=== PATIENT | female | born 1975 | race American Indian/Alaskan Native ===

== ENCOUNTER 2017-09-07 10:02 | Inpatient (IN) | payer OTHER ==
[2017-09-01 11:19] VITALS: BMI 28.3
[~2017-09-07 10:02] MED LIST: EPINEPHrine 1 mg/ml (1:1000) Inj ONE
[2017-09-07] MEDS ORDERED: LIDOCAINE HYDROCHLORIDE INJ ONE (10:09)
--- NOTE | 2017-09-07 14:06 | NM ---
HISTORY: 41Y Year old female with LEFT breast cancer. TECHNIQUE: Multiple injections of 1.1 mCi of 99m Tc filtered sulfur colloid (total volume of 8 ml) were administered into the left breast tissue in the periareolar region. Anterior and oblique projection images of the chest were subsequently obtained. FINDINGS: Migration of activity demonstrated in the left axilla. IMPRESSION: Migration of activity to the left axilla.
[2017-09-07] MEDS ORDERED: Propofol 10 mg/ml Inj (20 ML) ONE (14:19)
[2017-09-07] MEDS ORDERED: Midazolam 2 MG/2 ML VIAL ONE (14:19)
[2017-09-07] MEDS ORDERED: Succinylcholine Chloride 20 mg/ml Syr (5 ml) IV ONE (14:22)
[2017-09-07] MEDS ORDERED: ceFAZolin 1 gm in NS 2 GM/200 ML BAG IVPB ONE (14:46)
[2017-09-07] MEDS ORDERED: Morphine 4 MG/ML VIAL ONE (15:35)
[2017-09-07] MEDS ORDERED: Labetalol 25mg/5ml Syringe ONE (16:35)
[2017-09-07] MEDS ORDERED: HYDROmorphone 0.5 mg/0.5 ml ISec IVP PRN (16:48)
[2017-09-07] MEDS: Dextrose 5%/0.45% NS 1,000 ML IV SCH (18:00)
[2017-09-07] MEDS: Oxycodone/Acetaminophen 5/325 mg Tab PO PRN (20:45)
[2017-09-07] MEDS: ceFAZolin 1 GM in Sodium Chloride 0.9% 100 ML IVPB SCH (22:12)
--- NOTE | 2017-09-07 23:15 | CP.PCM.HP ---
Past Patient History - Past Medical History & Family History Past Medical History?: Yes - Past Social History Smoking Status: Never Smoked - CARDIAC Hx Cardiac Disorders: Yes Hx Hypertension: Yes - PULMONARY Hx Respiratory Disorders: No - NEUROLOGICAL Hx Neurological Disorder: No - HEENT Hx HEENT Problems: No - RENAL Hx Chronic Kidney Disease: No - ENDOCRINE/METABOLIC Hx Endocrine Disorders: No - HEMATOLOGICAL/ONCOLOGICAL Hx Blood Disorders: No - INTEGUMENTARY Hx Dermatological Problems: Yes (left nipple drainage) - MUSCULOSKELETAL/RHEUMATOLOGICAL Hx Musculoskeletal Disorders: No Hx Falls: No - GASTROINTESTINAL Hx Gastrointestinal Disorders: Yes Hx Gall Bladder Disease: Yes - GENITOURINARY/GYNECOLOGICAL Hx Genitourinary Disorders: No - PSYCHIATRIC Hx Psychophysiologic Disorder: No Hx Substance Use: No - SURGICAL HISTORY Hx Surgeries: Yes Hx Breast Biopsy: Yes (Right breast) Hx Cholecystectomy: Yes - ANESTHESIA Hx Anesthesia: Yes Hx Anesthesia Reactions: No Hx Malignant Hyperthermia: No Has any member of the family had a problem w/ anesthesia?: No Meds Allergies/Adverse Reactions: Allergies Allergy/AdvReac Type Severity Reaction Status Date / Time No Known Allergies Allergy Verified 10/25/12 09:50 Results - Vital Signs Recent Vital Signs: Last Vital Signs Temp 99 F 09/07/17 18:05 Pulse 82 09/07/17 18:05 Resp 17 09/07/17 18:05 BP 127/82 09/07/17 18:05 Pulse Ox 100 09/07/17 18:05
[2017-09-08 00:43] VITALS: RESP 20
--- NOTE | 2017-09-08 04:06 | OP ---
PROCEDURE DATE: 09/07/2017. PREOPERATIVE DIAGNOSIS: Left breast cancer. POSTOPERATIVE DIAGNOSIS: Left breast cancer. PROCEDURES PERFORMED: 1. Left simple mastectomy. 2. Left axillary deep sentinel node biopsy. 3. Advancement flap closure of 60 cm2. SURGEON: Dr. Ric James. OFFICE MACHINE MECHANIC: Dr. Vila. ANESTHESIA: General endotracheal. ESTIMATED BLOOD LOSS: 100 mL. POSTOPERATIVE CONDITION: Stable. 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 She is now scheduled for a simple mastectomy along with a sentinel lymph node biopsy. GROSS FINDINGS: There was an area of fibrotic tissue around the previous biopsy sites, during initial dissection of the inferior flap near the needle biopsy site, we cut through this tissue in order to leave an adequate thickness of the flap; however, once the breast was removed we inspected the flap and found that the tissue could be removed safely without compromising the flap, so it was removed at that time secondarily and sent for specimen. There were two sentinel nodes removed each measured over spectrometer and was sent for specimen and frozen section revealed both to be negative. PROCEDURE: The patient taken to the operating room, general anesthesia was administered and the left breast, axilla and left arm were prepped and draped. Standard left mastectomy incision was made surrounding the left breast, they were carried down to the skin, subcutaneous tissue using the Bovie. The superior breast flap was raised first. This was done down to the effect of the fascial layer of the pectoralis muscle. All the bleeding was controlled with the Bovie. The inferior flap was raised in a similar fashion with the above findings. Once the superior and inferior flaps were raised, dissection was carried out just to the axillary fascia in the left breast was removed and sent for specimen. At this point, sentinel node biopsy was carried out using a spectrometer and twp nodes were identified and dissected free and removed and sent for frozen section. While waiting closure was performed of the breast flaps, fresh flaps were found to be under somewhat tension so a advancement flaps were raised superiorly, inferiorly by raising full-thickness flaps including muscle and fascia and making counter incisions to more easily close the wound. A total of 60 cm2 a flap was raised. The wound was irrigated with saline. Confirmation was obtained and both lymph nodes were negative and the remainder of the closure was performed by suturing the flaps with multiple layers of Monocryl, subcuticular Monocryl and skin clips. A Chris drain was left in the axilla on top of the chest wall and brought out through inferior stab wound. The skin was closed with clips. The drain was sutured in place with nylon. The patient tolerated procedure well, returned to recovery room in stable condition. Ric James MD
[2017-09-08] MEDS: Dextrose 5%/0.45% NS 1,000 ML IV SCH (04:54)
[2017-09-08] MEDS: ceFAZolin 1 GM in Sodium Chloride 0.9% 100 ML IVPB SCH ×3 (06:11→22:23)
[2017-09-08 07:32] LABS: BASO % 0.1 % (0.0-2.0); HEMOGLOBIN 9.2 g/dL (11.0-16.0); LYMPH # 0.9 K/uL (1.0-4.3); LYMPH % 9.8 % (20.0-40.0); MEAN CELL VOLUME 76.2 fL (81.0-99.0); MEAN CORPUSCULAR HEMOGLOBIN 24.7 pg (27.0-31.0); MEAN CORPUSCULAR HGB CONC 32.5 g/dL (33.0-37.0); MEAN PLATELET VOLUME 8.6 fL (7.2-11.7); MONO # 0.7 K/uL (0.0-0.8); MONO % 7.2 % (0.0-10.0); NEUT # 7.7 K/uL (1.8-7.0); NEUT % 82.9 % (50.0-75.0); PLATELET COUNT 310 K/uL (130-400); RBC 3.71 Mil/uL (3.80-5.20); RED CELL DISTRIBUTION WIDTH 18.8 % (11.5-14.5); WHITE BLOOD COUNT 9.2 K/uL (4.8-10.8)
[2017-09-08 07:54] LABS: BLOOD UREA NITROGEN 12 mg/dL (7-17); CALCIUM 9.1 mg/dl (8.6-10.4); GFR AFRICAN-AMERICAN > 60; GFR NON-AFRICAN AMERICAN > 60
[2017-09-08] MEDS: Oxycodone/Acetaminophen 5/325 mg Tab PO PRN ×3 (08:54→22:31)
[2017-09-08] MEDS: Metoprolol Succinate 50 mg XL Tab PO SCH (09:27)
[2017-09-08] MEDS: Enoxaparin 40 mg Syringe SC SCH (09:28)
[2017-09-08 11:44] LABS: ANISOCYTOSIS SLIGHT; HYPOCHROMIC SLIGHT; LYMPHOCYTE 4 % (20-40); MONOCYTE 6 % (0-10); NEUTROPHIL 90 % (50-75); PLATELET ESTIMATE NORMAL (NORMAL); TOTAL CELLS COUNTED 100
[2017-09-08 11:45] LABS: MICROCYTOSIS SLIGHT
--- NOTE | 2017-09-08 23:53 | CP.PCM.PN ---
Subjective - Date & Time of Evaluation Date of Evaluation: 09/08/17 Time of Evaluation: 19:00 - Subjective Subjective: pt is seen and evaluated today Objective - Vital Signs/Intake and Output Vital Signs (last 24 hours): Temp Pulse Resp BP Pulse Ox 98.5 F 81 20 125/77 98 09/08/17 15:00 09/08/17 15:00 09/08/17 15:00 09/08/17 15:00 09/08/17 15:00 Intake and Output: 09/08/17 09/09/17 18:59 06:59 Intake Total 1140 580 Output Total 60 Balance 1080 580 - Medications Medications: Current Medications Docusate Sodium (Colace) 100 mg PO BID [facility] Last Admin: 09/08/17 17:31 Dose: 100 mg Enoxaparin Sodium (Lovenox) 40 mg SC DAILY [facility] Last Admin: 09/08/17 09:28 Dose: 40 mg Cefazolin Sodium 1 gm/ Sodium (Chloride) 100 mls @ 100 mls/hr IVPB Q8H [facility] PRN Reason: Protocol Last Admin: 09/08/17 22:23 Dose: 100 mls/hr Ketorolac Tromethamine (Toradol) 30 mg IVP Q6 PRN PRN Reason: pain 8-10 Stop: 09/12/17 16:51 Metoprolol Succinate (Toprol Xl) 50 mg PO DAILY [facility] Last Admin: 09/08/17 09:27 Dose: 50 mg Ondansetron HCl (Zofran Inj) 4 mg IVP Q6 PRN PRN Reason: Nausea/Vomiting Oxycodone/Acetaminophen (Percocet 5/325 Mg Tab) 2 tab PO Q4H PRN PRN Reason: pain Stop: 09/10/17 16:51 Last Admin: 09/08/17 22:31 Dose: 2 tab Pantoprazole Sodium (Protonix Inj) 40 mg IVP DAILY [facility] Last Admin: 09/08/17 09:28 Dose: 40 mg - Labs Labs: 09/08/17 07:27 09/08/17 07:27
[2017-09-09] MEDS: ceFAZolin 1 GM in Sodium Chloride 0.9% 100 ML IVPB SCH (06:29)
[2017-09-09 08:03] VITALS: BP 126/79; PULSE 80; TEMP 98.1; O2SAT 96
[2017-09-09] MEDS: Enoxaparin 40 mg Syringe SC SCH (09:03)
[2017-09-09] MEDS: Metoprolol Succinate 50 mg XL Tab PO SCH (09:03)
[2017-09-09] MEDS: Oxycodone/Acetaminophen 5/325 mg Tab PO PRN (12:12)
--- NOTE | 2017-09-09 23:49 | CP.PCM.DIS ---
Provider - Provider Date of Admission: 09/07/17 16:51 Attending physician: Ric James MD Time Spent in preparation of Discharge (in minutes): 45 Hospital Course - Lab Results Lab Results: Most Recent Lab Values WBC 9.2 K/uL (4.8-10.8) D 09/08/17 07: RBC 3.71 Mil/uL (3.80-5.20) L 09/08/17 07: Hgb 9.2 g/dL (11.0-16.0) L D 09/08/17 07: Hct 28.3 % (34.0-47.0) L 09/08/17 07: MCV 76.2 fL (81.0-99.0) L 09/08/17 07: MCH 24.7 pg (27.0-31.0) L 09/08/17 07: MCHC 32.5 g/dL (33.0-37.0) L 09/08/17 07: RDW 18.8 % (11.5-14.5) H 09/08/17 07: Plt Count 310 K/uL (130-400) 09/08/17 07: MPV 8.6 fL (7.2-11.7) 09/08/17 07: Neut % (Auto) 82.9 % (50.0-75.0) H 09/08/17 07: Lymph % (Auto) 9.8 % (20.0-40.0) L 09/08/17 07: [place] % (Auto) 7.2 % (0.0-10.0) 09/08/17 07: Eos % (Auto) 0.0 % (0.0-4.0) 09/08/17 07: Baso % (Auto) 0.1 % (0.0-2.0) 09/08/17: Neut # (Auto) 7.7 K/uL (1.8-7.0) H 09/08/17 07: Lymph # (Auto) 0.9 K/uL (1.0-4.3) L 09/08/17 07: [place] # (Auto) 0.7 K/uL (0.0-0.8) 04/25/18 07:27 Eos # (Auto) 0.0 K/uL (0.0-0.7) 09/08/17 07:27 Baso # (Auto) 0.0 K/uL (0.0-0.2) 09/08/17 07:27 Neutrophils % (Manual) 90 % (50-75) H 09/08/17 07:27 Lymphocytes % (Manual) 4 % (20-40) L 09/08/17 07:27 Monocytes % (Manual) 6 % (0-10) 09/08/17 07:27 Platelet Estimate Normal (NORMAL) 09/08/17 07:27 Hypochromasia (manual) Slight 09/08/17 07:27 Anisocytosis (manual) Slight 09/08/17 07:27 Microcytosis (manual) Slight 09/08/17 07:27 Sodium 140 mmol/L (132-148) 09/08/17 07:27 Potassium 4.4 mmol/L (3.6-5.2) 09/08/17 07:27 Chloride 104 mmol/L (98-107) 09/08/17 07:27 Carbon Dioxide 23 mmol/L (22-30) 09/08/17 07:27 Anion Gap 18 (10-20) 09/08/17 07:27 BUN 12 mg/dL (7-17) 09/08/17 07:27 Creatinine 1.0 mg/dL (0.7-1.2) 09/08/17 07:27 Est GFR ( Amer) > 60 09/08/17 07:27 Est GFR (Non-Af Amer) > 60 09/08/17 07:27 Random Glucose 115 mg/dL (65-105) H 09/08/17 07:27 Calcium 9.1 mg/dl (8.6-10.4) 09/08/17 07:27 Discharge Plan - Follow Up Plan Condition: GOOD Disposition: HOME/ ROUTINE Instructions: Mastectomy, Mastectomy (DC), Tramadol Additional Instructions: Post-op instrucitons, Resume all pre-op medications and diet at home. Remove dressing tomorrow and shower. Wash incision of soap and water. Clean wound, Hold drain while in shower. Empty drain 2x/day and record drainage. Light activity. Tramadol for pin. Call Dr. James [phone]/ for appointment Wednesday (09/14/17) Referrals: Ric James MD [Staff Provider] -
== END 2017-09-09 13:29 | disposition home or self-care (01) | DRG 266 ==
LOC: C.SDS 10:02 → C.9S 16:51 → C.3T 16:51 → C.9E 16:51 → C.3T 09-08 01:41 → UNDODISIN 09-08 18:03
PROVIDERS: ADMIT Surgery; ATTEND Surgery
PROC: 07B60ZX Excision of Left Axillary Lymphatic, Open Approach, Diagnostic (ICD-10-PCS; 2017-09-07)
PROC: 0HBU0ZZ Excision of Left Breast, Open Approach (ICD-10-PCS; principal; 2017-09-07 14:00)
PROC: 0HX5XZZ Transfer Chest Skin, External Approach (ICD-10-PCS; 2017-09-07 14:00)
DX: C50.912 Malignant neoplasm of unspecified site of left female breast (principal)

== ENCOUNTER 2017-10-18 11:00 | Inpatient (IN) | payer MEDICAID ==
[2017-09-01 11:17] VITALS: BMI 28.3
[2017-10-18] MEDS ORDERED: Propofol 10 mg/ml Inj (20 ML) ONE (16:17)
[2017-10-18] MEDS ORDERED: Midazolam 2 MG/2 ML VIAL ONE (16:17)
[2017-10-18] MEDS ORDERED: ceFAZolin IV 2 gm in Dextrose 2 GM/50 ML BAG IVPB ONE (16:22)
[2017-10-18] MEDS ORDERED: Oxycodone/Acetaminophen 5/325 mg Tab PO PRN (17:28)
[2017-10-18] MEDS: HYDROmorphone 0.5 mg/0.5 ml ISec IVP PRN ×3 (17:40→18:30)
[2017-10-18] MEDS ORDERED: Dextrose 5%/0.45% NS 1,000 ML IV ONE (18:00)
[2017-10-18] MEDS: Dextrose 5%/0.45% NS 1,000 ML IV SCH (20:03)
[2017-10-18] MEDS: Oxycodone/Acetaminophen 5/325 mg Tab PO PRN (21:21)
[2017-10-19] MEDS: ceFAZolin 1 gm FROZEN Premix 1 GM/50 ML ML IVPB SCH ×5 (01:21→23:40)
[2017-10-19] MEDS: Dextrose 5%/0.45% NS 1,000 ML IV SCH ×3 (01:22→18:35)
[2017-10-19 06:42] LABS: BASO % 0.5 % (0.0-2.0); HEMOGLOBIN 9.1 g/dL (11.0-16.0); LYMPH # 0.9 K/uL (1.0-4.3); LYMPH % 10.6 % (20.0-40.0); MEAN CELL VOLUME 76.3 fL (81.0-99.0); MEAN CORPUSCULAR HEMOGLOBIN 24.4 pg (27.0-31.0); MEAN PLATELET VOLUME 8.5 fL (7.2-11.7); MONO # 0.3 K/uL (0.0-0.8); MONO % 3.3 % (0.0-10.0); NEUT # 6.8 K/uL (1.8-7.0); NEUT % 85.6 % (50.0-75.0); NRBC % 0.1 % (0.0-2.0); RBC 3.72 Mil/uL (3.80-5.20)
[2017-10-19 06:55] LABS: ALBUMIN 3.4 g/dL (3.5-5.0); ALT/SGPT 33 U/L (9-52); AST/SGOT 37 U/L (14-36); BLOOD UREA NITROGEN 10 mg/dL (7-17); CALCIUM 9.1 mg/dl (8.6-10.4); GFR AFRICAN-AMERICAN > 60; GFR NON-AFRICAN AMERICAN > 60
[2017-10-19] MEDS ORDERED: Pneumococcal 23-Valent Vaccine IM ONE (10:00)
[2017-10-19] MEDS: Metoprolol Succinate 50 mg XL Tab PO SCH (10:15)
--- NOTE | 2017-10-19 10:22 | CP.PCM.HP ---
Present on Admission - Present on Admission Any Indicators Present on Admission: No Past Patient History - Past Medical History & Family History Past Medical History?: Yes - Past Social History Smoking Status: Never Smoked - CARDIAC Hx Cardiac Disorders: Yes Hx Hypertension: Yes - PULMONARY Hx Respiratory Disorders: No - NEUROLOGICAL Hx Neurological Disorder: No - HEENT Hx HEENT Problems: No - RENAL Hx Chronic Kidney Disease: No - ENDOCRINE/METABOLIC Hx Endocrine Disorders: No - HEMATOLOGICAL/ONCOLOGICAL Hx Blood Disorders: No - INTEGUMENTARY Hx Dermatological Problems: Yes (Left nipple drainage) - MUSCULOSKELETAL/RHEUMATOLOGICAL Hx Musculoskeletal Disorders: No Hx Falls: No - GASTROINTESTINAL Hx Gastrointestinal Disorders: Yes Hx Gall Bladder Disease: Yes - GENITOURINARY/GYNECOLOGICAL Hx Genitourinary Disorders: No - PSYCHIATRIC Hx Psychophysiologic Disorder: No Hx Substance Use: No - SURGICAL HISTORY Hx Surgeries: Yes Hx Breast Biopsy: Yes (Right breast) Hx Cholecystectomy: Yes Hx Mastectomy: Yes (Left Simple Mastectomy) - ANESTHESIA Hx Anesthesia: Yes Hx Anesthesia Reactions: No Hx Malignant Hyperthermia: No Meds Allergies/Adverse Reactions: Allergies Allergy/AdvReac Type Severity Reaction Status Date / Time No Known Allergies Allergy Verified 10/25/12 09:50 Results - Vital Signs Recent Vital Signs: Last Vital Signs Temp 97.9 F 10/19/17 08:00 Pulse 70 10/19/17 08:00 Resp 20 10/19/17 08:00 BP 118/68 10/19/17 08:00 Pulse Ox 96 10/19/17 08:00 - Labs Result Diagrams: 10/19/17 06:29 10/19/17 06:29 Labs: Laboratory Results - last 24 hr 10/19/17 10/19/17 10/19/17 06:29 06:29 06:39 WBC 8.0 RBC 3.72 L Hgb 9.1 L Hct 28.4 L MCV 76.3 L MCH 24.4 L MCHC 32.0 L RDW 18.0 H Plt Count 279 MPV 8.5 Neut % (Auto) 85.6 H Lymph % (Auto) 10.6 L [place] % (Auto) 3.3 Eos % (Auto) 0.0 Baso % (Auto) 0.5 Neut # (Auto) 6.8 Lymph # (Auto) 0.9 L [place] # (Auto) 0.3 Eos # (Auto) 0.0 Baso # (Auto) 0.0 Sodium 136 Potassium 4.7 Chloride 103 Carbon Dioxide 24 Anion Gap 13 BUN 10 Creatinine 0.9 Est GFR ( Amer) > 60 Est GFR (Non-Af Amer) > 60 Random Glucose 210 H Calcium 9.1 Total Bilirubin 0.5 AST 37 H ALT 33 Alkaline Phosphatase 48 Total Protein 6.7 Albumin 3.4 L Globulin 3.3 Albumin/Globulin Ratio 1.0 Urine HCG, Qual Negative
[2017-10-19] MEDS: Enoxaparin 40 mg Syringe SC SCH (10:30)
[2017-10-19] MEDS ORDERED: HEPARIN-NS 5,000 UNITS/500 ML 5,000 UNIT/500 ML BAG IV ONE (13:33)
[2017-10-19] MEDS ORDERED: Bupivacaine HCl 0.5% PF (30 ml) Inj ONE (13:34)
[2017-10-19] MEDS ORDERED: Lidocaine Hydrochloride 20 ML INJ ONE (13:34)
[2017-10-19] MEDS ORDERED: Lactated Ringer's 1,000 ML IV ONE (13:50)
[2017-10-19] MEDS ORDERED: ceFAZolin 1 gm in NS 2 GM/200 ML BAG IVPB ONE (13:55)
[2017-10-19] MEDS ORDERED: Midazolam 2 MG/2 ML VIAL ONE (13:57)
[2017-10-19] MEDS ORDERED: Propofol 10 mg/ml Inj (20 ML) ONE ×2 (13:57→14:25)
[2017-10-19] MEDS ORDERED: HYDROmorphone 0.5 mg/0.5 ml ISec IVP PRN (15:20)
--- NOTE | 2017-10-19 15:32 | RAD ---
PROCEDURE: Intraoperative Fluoroscopy. HISTORY: POOR VENOUS ACCESS/BREAST CA FINDINGS: Fluoroscopic assistance was provided for right sided Port-A-Cath placement. Please refer to the operative report from ESTHER Dietz.
--- NOTE | 2017-10-19 15:37 | RAD ---
HISTORY: SP portacath COMPARISON: Chest radiographs 09/01/2017. FINDINGS: LUNGS: Diminished history volume however there is no acute infiltrate appreciated bilaterally. Right MediPort now identified in position terminating at the distal superior vena cava. Left chest drainage catheter present with thin janice noted at the left chest wall, status post left mastectomy. PLEURA: No significant pleural effusion identified, no pneumothorax apparent. CARDIOVASCULAR: Normal. OSSEOUS STRUCTURES: S-shaped thoracolumbar scoliotic deformity reiterated. VISUALIZED UPPER ABDOMEN: Surgical clips again evident right upper quadrant abdomen. OTHER FINDINGS: None. IMPRESSION: Diminished inspiratory volume. Interval post left mastectomy changes as well as MediPort deployment as discussed above.
[2017-10-19] MEDS: Lactated Ringer's 1,000 ML IV SCH (16:00)
[2017-10-19 17:02] VITALS: RESP 20
[2017-10-19] MEDS: Oxycodone/Acetaminophen 5/325 mg Tab PO PRN (19:46)
[2017-10-20] MEDS: Lactated Ringer's 1,000 ML IV SCH ×2 (01:30→11:18)
[2017-10-20] MEDS: Dextrose 5%/0.45% NS 1,000 ML IV SCH (06:03)
[2017-10-20 07:33] VITALS: BP 130/82; PULSE 78; TEMP 98.6; O2SAT 99
[2017-10-20] MEDS: ceFAZolin 1 gm FROZEN Premix 1 GM/50 ML ML IVPB SCH (09:27)
[2017-10-20] MEDS: Metoprolol Succinate 50 mg XL Tab PO SCH (09:28)
[2017-10-20] MEDS: Enoxaparin 40 mg Syringe SC SCH ×2 (09:28→09:32)
--- NOTE | 2017-10-20 09:29 | CP.PCM.PN ---
Subjective - Date & Time of Evaluation Date of Evaluation: 10/19/17 Time of Evaluation: 17:00 - Subjective Subjective: Pt is doing better, s/p mastectomy for breast cancer, she is afebrile, no shortness of breath, no fever, B.P is under control, pt is for laura cath Objective - Vital Signs/Intake and Output Vital Signs (last 24 hours): Temp Pulse Resp BP Pulse Ox 98.6 F 78 20 130/82 99 10/20/17 07:31 10/20/17 07:31 10/20/17 07:31 10/20/17 07:31 10/20/17 07:31 Intake and Output: 10/20/17 10/20/17 06:59 18:59 Intake Total 2039 Output Total Balance 2009 - Medications Medications: Current Medications Docusate Sodium (Colace) 100 mg PO BID [facility] Last Admin: 10/19/17 17:11 Dose: 100 mg Enoxaparin Sodium (Lovenox) 40 mg SC DAILY [facility] Last Admin: 10/19/17 10:30 Dose: Not Given Folic Acid (Folic Acid) 1 mg PO DAILY [facility] Last Admin: 10/19/17 17:11 Dose: 1 mg Dextrose/Sodium Chloride (Dextrose 5%/0.45% Ns 1000 Ml) 1,000 mls @ 80 mls/hr IV .[id number] [facility] Last Admin: 10/20/17 06:03 Dose: 80 mls/hr Cefazolin Sodium (Ancef) 1 gm in 50 mls @ 100 mls/hr IVPB Q8H [facility] PRN Reason: Protocol Last Admin: 10/19/17 23:40 Dose: 100 mls/hr Lactated Ringer's (Lactated Ringer's) 1,000 mls @ 100 mls/hr IV .Q10H [facility] Last Admin: 10/20/17 01:30 Dose: Not Given Ketorolac Tromethamine (Toradol) 30 mg IVP Q6 PRN PRN Reason: pain 8-10 Stop: 10/23/17 17:29 Metoprolol Succinate (Toprol Xl) 50 mg PO DAILY [facility] Last Admin: 10/19/17 10:15 Dose: 50 mg Ondansetron HCl (Zofran Inj) 4 mg IVP Q6 PRN PRN Reason: Nausea/Vomiting Oxycodone/Acetaminophen (Percocet 5/325 Mg Tab) 2 tab PO Q4H PRN PRN Reason: pain Stop: 10/21/17 17:29 Last Admin: 10/20/17 05:50 Dose: 2 tab Oxycodone/Acetaminophen (Percocet 5/325 Mg Tab) 1 tab PO Q4H PRN PRN Reason: Pain, Mild (1-3) Stop: 10/21/17 21:12 Last Admin: 10/19/17 19:46 Dose: 1 tab Pantoprazole Sodium (Protonix Inj) 40 mg IVP DAILY [facility] Last Admin: 10/19/17 10:15 Dose: 40 mg - Labs Labs: 10/19/17 06:29 10/19/17 06:29 - Constitutional Appears: No Acute Distress - Head Exam Head Exam: ATRAUMATIC, NORMAL INSPECTION, NORMOCEPHALIC - Eye Exam Eye Exam: EOMI, Normal appearance, PERRL Pupil Exam: NORMAL ACCOMODATION, PERRL - ENT Exam ENT Exam: Mucous Membranes Moist, Normal Exam - Respiratory Exam Respiratory Exam: Clear to Ausculation Bilateral, NORMAL BREATHING PATTERN - Cardiovascular Exam Cardiovascular Exam: REGULAR RHYTHM, +S1, +S2. absent: Murmur - GI/Abdominal Exam GI & Abdominal Exam: Soft, Normal Bowel Sounds. absent: Tenderness Assessment and Plan (1) S/P mastectomy Status: Acute (2) HTN (hypertension) Status: Acute
--- NOTE | 2017-10-21 08:33 | CP.PCM.DIS ---
Provider - Provider Date of Admission: 10/18/17 17:28 Attending physician: Ric James MD Time Spent in preparation of Discharge (in minutes): 45 Diagnosis - Discharge Diagnosis (1) S/P mastectomy Status: Acute (2) HTN (hypertension) Status: Acute Hospital Course - Lab Results Lab Results: Most Recent Lab Values WBC 8.0 K/uL (4.8-10.8) 10/19/17 06: RBC 3.72 Mil/uL (3.80-5.20) L 10/19/17 06:29 Hgb 9.1 g/dL (11.0-16.0) L 10/19/17 06: Hct 28.4 % (34.0-47.0) L 10/19/17 06: MCV 76.3 fL (81.0-99.0) L 10/19/17 06: MCH 24.4 pg (27.0-31.0) L 10/19/17 06: MCHC 32.0 g/dL (33.0-37.0) L 10/19/17 06: RDW 18.0 % (11.5-14.5) H 10/19/17 06: Plt Count 279 K/uL (130-400) 10/19/17 06: MPV 8.5 fL (7.2-11.7) 10/19/17 06: Neut % (Auto) 85.6 % (50.0-75.0) H 10/19/17 06: Lymph % (Auto) 10.6 % (20.0-40.0) L 10/19/17 06: [place] % (Auto) 3.3 % (0.0-10.0) 10/19/17 06: Eos % (Auto) 0.0 % (0.0-4.0) 10/19/17 06: Baso % (Auto) 0.5 % (0.0-2.0) 10/19/17 06: Neut # (Auto) 6.8 K/uL (1.8-7.0) 10/19/17 06: Lymph # (Auto) 0.9 K/uL (1.0-4.3) L 10/19/17 06:29 [place] # (Auto) 0.3 K/uL (0.0-0.8) 10/19/17 06:29 Eos # (Auto) 0.0 K/uL (0.0-0.7) 10/19/17 06:29 Baso # (Auto) 0.0 K/uL (0.0-0.2) 10/19/17 06:29 Sodium 136 mmol/L (132-148) 10/19/17 06:29 Potassium 4.7 mmol/L (3.6-5.2) 10/19/17 06:29 Chloride 103 mmol/L (98-107) 10/19/17 06:29 Carbon Dioxide 24 mmol/L (22-30) 10/19/17 06:29 Anion Gap 13 (10-20) 10/19/17 06:29 BUN 10 mg/dL (7-17) 10/19/17 06:29 Creatinine 0.9 mg/dL (0.7-1.2) 10/19/17 06:29 Est GFR ( Amer) > 60 10/19/17 06:29 Est GFR (Non-Af Amer) > 60 10/19/17 06:29 Random Glucose 210 mg/dL (65-105) H 10/19/17 06:29 Calcium 9.1 mg/dl (8.6-10.4) 10/19/17 06:29 Total Bilirubin 0.5 mg/dL (0.2-1.3) 10/19/17 06:29 AST 37 U/L (14-36) H 10/19/17 06:29 ALT 33 U/L (9-52) 10/19/17 06:29 Alkaline Phosphatase 48 U/L (38-126) 10/19/17 06:29 Total Protein 6.7 g/dL (6.3-8.3) 10/19/17 06:29 Albumin 3.4 g/dL (3.5-5.0) L 10/19/17 06:29 Globulin 3.3 gm/dL (2.2-3.9) 10/19/17 06:29 Albumin/Globulin Ratio 1.0 (1.0-2.1) 10/19/17 06:29 Urine HCG, Qual Negative (NEGATIVE) 10/19/17 06:39 Discharge Exam - Head Exam Head Exam: ATRAUMATIC, NORMAL INSPECTION, NORMOCEPHALIC Discharge Plan - Follow Up Plan Condition: GOOD Disposition: HOME/ ROUTINE Instructions: Donta-Waller Drain, Breast Cancer (DC), Mastectomy (DC), Oxycodone and Acetaminophen Referrals: Ric James MD [Staff Provider] -
--- NOTE | 2017-11-20 00:59 | OP ---
PROCEDURE DATE: 10/18/2017 PREOPERATIVE DIAGNOSIS: Residual carcinoma in situ of the left chest wall. POSTOPERATIVE DIAGNOSIS: Residual carcinoma in situ of the left chest wall. PROCEDURE PERFORMED: Wide deep excision of suture line of the left chest wall with advancement flap closure. SURGEON: Ric James MD CANT HOOKER: Alexandru Vila MD ANESTHESIA: General endotracheal. ESTIMATED BLOOD LOSS: 100 mL. POSTOPERATIVE CONDITION: Stable. INDICATIONS FOR SURGERY: This is a 42-year-old female who underwent a simple mastectomy and a sentinel node biopsy (which was negative) for diffuse carcinoma in situ of the left breast. Findings on pathology including diffusely scattered carcinoma both carcinoma in situ lesions as well as invasive carcinoma lesions throughout the breast and a couple margins were positive for carcinoma in situ. For this reason, the patient was taken back to the operating room for re-excision of the chest wall flaps in order to gain negative margins on the tumor. DESCRIPTION OF PROCEDURE: The patient was taken to the operating room. General anesthesia was administered. The left chest wall was prepped and draped. A generous elliptical incision was made surrounding the previous excision, and new chest wall flaps were raised superiorly and inferiorly down to the chest wall. The specimen was taken off the chest wall through the scar tissue using the Bovie. Larger chest wall blood vessel was repaired. The wound was irrigated with sterile water leaving a large tissue defect. The generous tissue flaps were raised measuring over 100 sq cm and with counter incisions made and advancement flap closure was performed with multiple layers of Monocryl, subcuticular Monocryl and skin clips. The wounds were dressed sterilely. The patient tolerated the procedure well, returned to recovery room in stable condition. Ric James MD
--- NOTE | 2017-11-20 01:05 | OP ---
PROCEDURE DATE: 10/19/2017 PREOPERATIVE DIAGNOSIS: Invasive breast cancer of the left breast. POSTOPERATIVE DIAGNOSIS: Invasive breast cancer of the left breast. PROCEDURE PERFORMED: Port-A-Cath insertion. SURGEON: Ric James MD ANESTHESIA: General. BLOOD LOSS: 30 mL. POSTOPERATIVE CONDITION: Stable. DESCRIPTION OF PROCEDURE: The patient was taken to the operating room, and IV sedation was administered. The right chest wall and neck were prepped and draped. The right internal jugular vein was cannulated. The guidewire was inserted through vena cava. This was confirmed fluoroscopically. Next, breast flaps were created on the chest wall utilizing the Bovie. Superior and inferior flaps were made. The underlying bleeding from the cephalic blood vessel was repaired. The catheter was then tunneled into the neck puncture site and inserted over an introducer. It was withdrawn to the level of vena cava which was confirmed fluoroscopically. It was connected to a subcutaneous port which was placed within the pocket. The tissue flap closure was performed with multiple layers of Monocryl, subcuticular Monocryl and glue. The catheter was flushed with heparinized saline, found to be widely patent. The patient tolerated the procedure well, returned to recovery room in stable condition. Ric James MD
== END 2017-10-20 12:35 | disposition home or self-care (01) | DRG 270 ==
LOC: C.SDS 11:00 → C.3T 17:28
PROVIDERS: ADMIT Surgery; ATTEND Surgery
PROC: 0JH60WZ Insertion of Totally Implantable Vascular Access Device into Chest Subcutaneous Tissue and Fascia, Open Approach (ICD-10-PCS; 2017-10-18)
PROC: 02HV33Z Insertion of Infusion Device into Superior Vena Cava, Percutaneous Approach (ICD-10-PCS; 2017-10-18)
PROC: B518ZZA Fluoroscopy of Superior Vena Cava, Guidance (ICD-10-PCS; 2017-10-18)
PROC: 0WB80ZZ Excision of Chest Wall, Open Approach (ICD-10-PCS; principal; 2017-10-18 18:30)
DX: C50.112 Malignant neoplasm of central portion of left female breast (principal); D05.92 Unspecified type of carcinoma in situ of left breast; I10 Essential (primary) hypertension; Z90.12 Acquired absence of left breast and nipple